=== PATIENT | female | born 1975 | race African-American/Black ===

== ENCOUNTER 2018-04-21 08:20 | Emergency (ER) | payer OTHER ==
[~2018-04-21] VITALS: Ht 170.2 cm; Wt 108.0 kg
[2018-04-21 08:27] VITALS: TEMP 37; Ht 170.2 cm; Wt 108.0 kg
[2018-04-21] MEDS ORDERED: SODIUM CHLORIDE 0.9% 1000ML 1,000 ML IV STA (08:49)
[2018-04-21] MEDS ORDERED: SRQ/200 PO (08:55)
[2018-04-21] MEDS ORDERED: QUET1TAB34 PO (08:55)
[2018-04-21 09:24] LABS: BASO % 0.2 %; BASO ABS # 0.01 K/uL (0-0.2); EOS % 3.3 %; EOS ABS # 0.19 K/uL (0-0.5); HEMOGLOBIN 13.6 g/dL (12.0-16.0); IG# 0.01 K/uL (0.00-0.02); LYMPH % 44.2 %; LYMPH ABS # 2.58 K/uL (1.2-3.4); MEAN CELL VOLUME 86.3 fL (80-100); MEAN CORPUSCULAR HEMOGLOBIN 30.1 pg (25-34); MEAN CORPUSCULAR HGB CONC 34.9 g/dl (32-36); MEAN PLATELET VOLUME 11.5 fL (7.4-10.4); MONO % 7.4 %; MONO ABS # 0.43 K/uL (0.11-0.59); NEUT % 44.7 %; NEUT ABS # 2.62 K/uL (1.4-6.5); PLATELET COUNT 197 K/uL (130-400); RED CELL DISTRIBUTION WIDTH CV 13.3 % (11.5-14.5); RED CELL DISTRIBUTION WIDTH SD 41.9 fL (36.4-46.3); WHITE BLOOD COUNT 5.84 K/uL (4.8-10.8)
--- NOTE | 2018-04-21 09:26 | DIAGNOSTIC IMAGING REPORT ---
CT SCAN OF THE ABDOMEN AND PELVIS WITHOUT CONTRAST CLINICAL HISTORY: Right flank pain COMPARISON STUDY: No previous studies for comparison. TECHNIQUE: CT scan of the abdomen and pelvis was performed from the lung bases to the proximal femurs. Images are reviewed in the axial, sagittal, and coronal planes. IV contrast was not administered for this examination. A dose lowering technique was utilized adhering to the principles of ALARA. CT DOSE: 1766.54 mGy.cm FINDINGS: Lower chest: The heart is normal in size and configuration, without pericardial effusion. The lung bases and pleural spaces are clear. Liver: The unenhanced liver is normal in size, contour, and attenuation. There is no intrahepatic biliary ductal dilatation. Gallbladder: Unremarkable. Spleen: Normal in size and attenuation. Pancreas: Unremarkable. Adrenal glands: Unremarkable. Kidneys: No renal, ureteral, or bladder calculi are visualized. Bowel: There are no transition zones indicate bowel obstruction. There is no acute diverticulitis. The appendix appears normal. Peritoneum: There is no intraperitoneal free air or abdominal ascites. There is rectus diastases. There is a fat-containing umbilical hernia. Vasculature: The abdominal aorta is normal in course and caliber. Adenopathy: None. Pelvic viscera: The uterus appears surgically absent. The right ovary is mildly prominent measuring 34 mm in diameter. Skeletal structures: No destructive osseous lesions are seen. IMPRESSION: 1. No acute intra-abdominal or pelvic findings 2. No evidence of bowel obstruction. No evidence of free air 3. No renal, ureteral, or bladder calculi identified 4. Normal appendix. No evidence of diverticulitis. Electronically signed by: Ovidio Rajput M.D. 04/21/2018 9:25 AM Dictated Date/Time: 04/21/2018 9:21 AM
[2018-04-21 09:44] LABS: ALBUMIN 3.7 gm/dl (3.4-5.0); CALCIUM 8.8 mg/dl (8.5-10.1); CREATININE 0.87 mg/dl (0.60-1.20); POTASSIUM 3.7 mmol/L (3.5-5.1); TOTAL PROTEIN 7.8 gm/dl (6.4-8.2)
--- NOTE | 2018-04-21 11:42 | EMERGENCY ROOM VISIT NOTE ---
History First contact with patient: 08:36 Chief Complaint: ABDOMINAL PAIN Stated Complaint: ABDOMINAL PAIN Nursing Triage Summary: pt here with right lower abd pains and flank pain that began suddenly at 0730 this am. pt having nausea and vomiting also. pt states has been voiding more frequently. no hx of stones. History of Present Illness Patient is a 42-year-old emergency department from [facility] accompanied by corrections officers for evaluation of the abrupt onset of right flank pain that started about an hour ago. Patient states that she was feeling well and was in her usual state of health yesterday. She had pizza for dinner. She woke up this morning and was going to get her medications when she developed a wavelike pain in her right back that radiated to her right abdomen. She states that it steadily escalated, made her feel nauseous, and she vomited twice. Emesis was yellowish in nature, and nonbloody. She did receive Zofran 4 mg and Toradol 30 mg en route, and had near complete resolution of her pain. At its worst she rated it a 10/10, now she states that she is pain-free. She did urinate this morning, states that it was normal she did not notice any gross hematuria and denies any dysuria. Last bowel movement was last evening and was normal. She is status post hysterectomy. She denies any prior history of kidney stones. She still has her gallbladder and her appendix. Neither the patient nor corrections officers are aware of any illnesses in the facility. Review of Systems Review of systems as per HPI. All other systems reviewed were negative. 10 systems reviewed. Past Medical/Surgical History Medical Problems: (1) Hearing impaired (2) Mood disorder (3) Polysubstance abuse Surgical Problems: (1) History of hysterectomy The patient has no old records at our facility for review. Records from the [facility] that accompany the patient are reviewed Social History Smoking Status: Current Every Day Smoker Occupation Status: other (Incarcerated) Current/Historical Medications Scheduled Quetiapine Fumarate (Seroquel), 100 MG PO DAILY Quetiapine Fumarate (Seroquel), 200 MG PO HS Physical Exam Vital Signs Date Time Temp Pulse Resp B/P (MAP) Pulse Ox O2 Delivery O2 Flow Rate FiO2 04/21/18 12:11 79 107/71 96 04/21/18 10:20 81 16 112/72 98 Room Air 04/21/18 08:27 37.0 86 16 106/64 97 Room Air Physical Exam CONSTITUTIONAL: Patient is an obese, but otherwise well-appearing 42-year-old female who is awake and alert and in no acute distress. EYES: Pupils equal, round, reactive to light and accommodation. EOMs intact without nystagmus. Sclera are anicteric. ENT: Tympanic membranes intact, with normal landmarks. External canals are clear. Oral and nasopharynx are clear. Mucous membranes are moist, no lesions , tongue and gums appear normal. CARDIOVASCULAR: Regular rate and rhythm, with normal S1 and S2, no murmur or gallop or rub is heard. No carotid bruits auscultated. No JVD. Peripheral pulses easily palpable. RESPIRATORY: Breath sounds equal and clear to auscultation without wheezes, rales, or rhonchi heard. Full and equal chest expansion without accessory muscle use or retractions. ABDOMEN: Bowel sounds are present. Abdomen is soft, obese, slightly tender to palpation in the right mid abdomen without guarding, rebound or rigidity. No CVA tenderness. INTEGUMENTARY: No lesions or rash, normal skin turgor. LYMPH: No lymphadenopathy. Medical Decision & Procedures ER Provider Diagnostic Interpretation: CT SCAN OF THE ABDOMEN AND PELVIS WITHOUT CONTRAST CLINICAL HISTORY: Right flank pain COMPARISON STUDY: No previous studies for comparison. TECHNIQUE: CT scan of the abdomen and pelvis was performed from the lung bases to the proximal femurs. Images are reviewed in the axial, sagittal, and coronal planes. IV contrast was not administered for this examination. A dose lowering technique was utilized adhering to the principles of ALARA. CT DOSE: 1766.54 mGy.cm FINDINGS: Lower chest: The heart is normal in size and configuration, without pericardial effusion. The lung bases and pleural spaces are clear. Liver: The unenhanced liver is normal in size, contour, and attenuation. There is no intrahepatic biliary ductal dilatation. Gallbladder: Unremarkable. Spleen: Normal in size and attenuation. Pancreas: Unremarkable. Adrenal glands: Unremarkable. Kidneys: No renal, ureteral, or bladder calculi are visualized. Bowel: There are no transition zones indicate bowel obstruction. There is no acute diverticulitis. The appendix appears normal. Peritoneum: There is no intraperitoneal free air or abdominal ascites. There is rectus diastases. There is a fat-containing umbilical hernia. Vasculature: The abdominal aorta is normal in course and caliber. Adenopathy: None. Pelvic viscera: The uterus appears surgically absent. The right ovary is mildly prominent measuring 34 mm in diameter. Skeletal structures: No destructive osseous lesions are seen. IMPRESSION: 1. No acute intra-abdominal or pelvic findings 2. No evidence of bowel obstruction. No evidence of free air 3. No renal, ureteral, or bladder calculi identified 4. Normal appendix. No evidence of diverticulitis. Laboratory Results 04/21/18 09:00 Red Blood Count 4.52, Mean Corpuscular Volume 86.3, Mean Corpuscular Hemoglobin 30.1, Mean Corpuscular Hemoglobin Concent 34.9, Mean Platelet Volume 11.5, Neutrophils (%) (Auto) 44.7, Lymphocytes (%) (Auto) 44.2, Monocytes (%) (Auto) 7.4, Eosinophils (%) (Auto) 3.3, Basophils (%) (Auto) 0.2, Neutrophils # (Auto) 2.62, Lymphocytes # (Auto) 2.58, Monocytes # (Auto) 0.43, Eosinophils # (Auto) 0.19, Basophils # (Auto) 0.01 04/21/18 09:00 Test 04/21/18 09:00 04/21/18 11:11 White Blood Count 5.84 K/uL (4.8-10.8) Red Blood Count 4.52 M/uL (4.2-5.4) Hemoglobin 13.6 g/dL (12.0-16.0) Hematocrit 39.0 % (37-47) Mean Corpuscular Volume 86.3 fL (80-100) Mean Corpuscular Hemoglobin 30.1 pg (25-34) Mean Corpuscular Hemoglobin Concent 34.9 g/dl (32-36) Platelet Count 197 K/uL (130-400) Mean Platelet Volume 11.5 fL (7.4-10.4) Neutrophils (%) (Auto) 44.7 % Lymphocytes (%) (Auto) 44.2 % Monocytes (%) (Auto) 7.4 % Eosinophils (%) (Auto) 3.3 % Basophils (%) (Auto) 0.2 % Neutrophils # (Auto) 2.62 K/uL (1.4-6.5) Lymphocytes # (Auto) 2.58 K/uL (1.2-3.4) Monocytes # (Auto) 0.43 K/uL (0.11-0.59) Eosinophils # (Auto) 0.19 K/uL (0-0.5) Basophils # (Auto) 0.01 K/uL (0-0.2) RDW Standard Deviation 41.9 fL (36.4-46.3) RDW Coefficient of Variation 13.3 % (11.5-14.5) Immature Granulocyte % (Auto) 0.2 % Immature Granulocyte # (Auto) 0.01 K/uL (0.00-0.02) Anion Gap 8.0 mmol/L (3-11) Est Creatinine Clear Calc Drug Dose 106.6 ml/min Estimated GFR () 95.2 Estimated GFR (Non- 82.2 BUN/Creatinine Ratio 11.0 (10-20) Calcium Level 8.8 mg/dl (8.5-10.1) Total Bilirubin 0.2 mg/dl (0.2-1) Aspartate Amino Transf (AST/SGOT) 26 U/L (15-37) Alanine Aminotransferase (ALT/SGPT) 31 U/L (12-78) Alkaline Phosphatase 132 U/L (45-117) Total Protein 7.8 gm/dl (6.4-8.2) Albumin 3.7 gm/dl (3.4-5.0) Globulin 4.1 gm/dl (2.5-4.0) Albumin/Globulin Ratio 0.9 (0.9-2) Lipase 77 U/L (73-393) Chemistry Specimen Hemolysis Urine Color YELLOW Urine Appearance CLOUDY (CLEAR) Urine pH 6.0 (4.5-7.5) Urine Specific Bradford 1.018 (1.000-1.030) Urine Protein NEG (NEG) Urine Glucose (UA) NEG (NEG) Urine Ketones NEG (NEG) Urine Occult Blood NEG (NEG) Urine Nitrite NEG (NEG) Urine Bilirubin NEG (NEG) Urine Urobilinogen NEG (NEG) Urine Leukocyte Esterase NEG (NEG) Urine WBC (Auto) 1-5 /hpf (0-5) Urine RBC (Auto) 0-4 /hpf (0-4) Urine Hyaline Casts (Auto) 1-5 /lpf (0-5) Urine Epithelial Cells (Auto) >30 /lpf (0-5) Urine Bacteria (Auto) 1+ (NEG) Medications Administered Medications (Trade) Dose Ordered Sig/Cande Route Start Time Stop Time Status Last Admin Dose Admin Sodium Chloride 1,000 ml @ 999 mls/hr Q1H1M STAT IV 04/21/18 08:49 04/21/18 09:49 DC 04/21/18 09:10 999 MLS/HR ED Course The patient was seen and assessed as above. She has no old records for review. He presents emergency department for evaluation of the abrupt onset of right flank pain with associated nausea and vomiting. She was medicated en route and is now symptom-free. IV lock was initiated and she was hydrated with a liter bolus of normal saline solution. CBC with differential, CMP, lipase and urinalysis were ordered. Given the colicky pain, I was suspicious for kidney stone and therefore CT scan of the abdomen pelvis without contrast was ordered. Laboratory studies were unremarkable. White count is normal. She is not anemic. Electrolytes, renal functions and liver functions are within normal limits. Lipase is not elevated. The patient was ultimately able to provide a urine sample which was completely clean, with no signs of infection and greater than [address] scan of the abdomen and pelvis was unremarkable. No acute intra- abdominal or pelvic findings. No bowel obstruction, free air, renal, ureteral or bladder calculi were noted. The appendix was visualized and was normal. There is no evidence for diverticulitis. Gallbladder was also reviewed and was unremarkable. The patient rested comfortably and remained stable without any additional medication needs while in the emergency department awaiting the results of her workup. She was given oral fluids which she tolerated. Differential diagnoses entertained included UTI, pyelonephritis, renal colic, shingles, bowel obstruction, perforation, biliary colic, acute cholecystitis, cholelithiasis, ascending cholangitis, viral illness, gastritis, peptic ulcer disease, among others. The patient was reassured. She was encouraged to start on a clear diet and advance as tolerated. Follow-up with the medical staff at the correctional facility her symptoms persist. Medical Decision See ED Course. Medication Reconcilliation Current Medication List: was personally reviewed by me Blood Pressure Screening Patient's blood pressure: Normal blood pressure Blood pressure disposition: Did not require urgent referral Impression Primary Impression: Right flank pain Additional Impression: Nausea and vomiting Departure Information Referrals No Doctor, Assigned (PCP) Patient Instructions My [facility] Additional Instructions Acetaminophen(Tylenol) may be used for fever or pain. Use 1000mg every eight hours as needed. Avoid using more than 3000mg in a 24 hour period. This is available over the counter. Rest and drink plenty of fluids as tolerated. Slow sips of water or sports drinks are recommended instead of large amounts all at once. Continue current medications. Once your stomach is settled start with a clear liquid diet (jello, soup broth, etc.) and then advance as tolerated. You should avoid full, heavy meals for about 24 hrs from the time your symptoms resolved. Return to the ER immediately for worsening or persistent abdominal pain, vomiting, fevers, chest pains, difficulty breathing, black or bloody stools, worsening of your condition, or as needed. Follow up with your primary physician in 1-2 days for a recheck of your current condition. Problem Qualifiers Additional Impression: Nausea and vomiting Vomiting type: unspecified Vomiting Intractability: non-intractable Qualified Codes: R11.2 - Nausea with vomiting, unspecified
[2018-04-21 12:11] VITALS: BP 107/71; PULSE 79; O2SAT 96
== END 2018-04-21 12:13 | disposition home or self-care (01) ==
LOC: C.EDA 08:26
DX: R10.31 Right lower quadrant pain (principal); R11.2 Nausea with vomiting, unspecified; Z90.710 Acquired absence of both cervix and uterus; F39 Unspecified mood [affective] disorder; F17.210 Nicotine dependence, cigarettes, uncomplicated; E66.9 Obesity, unspecified